=== PATIENT | male | born 1970 | race Two or more races ===

== ENCOUNTER 2019-07-16 18:33 | Emergency (ER) | payer OTHER ==
[~2019-07-16] VITALS: Ht 180.3 cm; Wt 81.6 kg
[2019-07-16 18:38] VITALS: BP 146/77
--- NOTE | 2019-07-16 18:58 | NUR ---
Patient discharged to home in stable condition. Written and verbal after care instructions given. Patient verbalizes understanding of instruction.
== END 2019-07-16 18:58 | disposition home or self-care (01) ==
LOC: ER 18:34
DX: S29.012A Strain of muscle and tendon of back wall of thorax, initial encounter (principal); X58.XXXA Exposure to other specified factors, initial encounter; Y93.89 Activity, other specified; Y92.89 Other specified places as the place of occurrence of the external cause; Y99.8 Other external cause status

== ENCOUNTER 2019-07-18 10:31 | Emergency (ER) | payer OTHER ==
[~2019-07-18] VITALS: Ht 180.3 cm; Wt 81.6 kg
[2019-07-18 10:43] VITALS: BP 148/85
== END 2019-07-18 11:33 | disposition home or self-care (01) ==
LOC: ER 10:32
DX: S29.012A Strain of muscle and tendon of back wall of thorax, initial encounter (principal); X58.XXXA Exposure to other specified factors, initial encounter; Y93.89 Activity, other specified; Y92.89 Other specified places as the place of occurrence of the external cause; Y99.8 Other external cause status
CPT/HCPCS: 71045-TC; 72074-TC